=== PATIENT | male | born 1985 | race Caucasian/White ===

== ENCOUNTER 2019-06-18 16:55 | Emergency (ER) | payer OTHER ==
[~2019-06-18] VITALS: Ht 167.6 cm; Wt 70.3 kg
[2019-06-18 17:12] VITALS: BP 130/92
== END 2019-06-18 17:52 | disposition home or self-care (01) ==
LOC: ER 16:59
DX: L29.8 Other pruritus (principal); R21 Rash and other nonspecific skin eruption; F10.10 Alcohol abuse, uncomplicated; F17.200 Nicotine dependence, unspecified, uncomplicated; Y90.9 Presence of alcohol in blood, level not specified